=== PATIENT | female | born 1980 | race Caucasian/White ===

== ENCOUNTER 2019-06-04 15:19 | Emergency (ER) | payer SELFPAY ==
[2019-06-04 15:32] VITALS: BP 113/82; PULSE 110; RESP 18; TEMP 36.7; O2SAT 97
--- NOTE | 2019-06-04 15:47 | ED.GENADUL_ITS ---
Discharge Plan Disposition Patient Disposition: HOME Condition: Improving Discharge Details Chief Complaint: DentalOral Clinical Impression: Broken tooth Primary Care Provider: None,None ED Provider: Wesley Davidson Home Meds and New Rx's Prescriptions: New penicillin V potassium 500 mg tablet 500 mg PO TID 10 Days Qty: 30 RF: 0 tramadol 50 mg tablet 50 mg PO BID PRN (Reason: pain) Qty: 5 RF: 0 Discharge Instructions Instructions: Acute Dental Trauma (ED) Additional Instructions: Continue ibuprofen 800 mg every 8 hours, Tylenol 650 mg every 6 hours as needed for pain. May use the provided prescription for tramadol if needed for severe or breakthrough pain. Return if develop difficulty swallowing, difficulty breathing, continued enlargement of the swelling, or any other acute concerns. Please follow-up with social work directly as instructed by nursing staff.. May apply moist warm heat to area to reduce discomfort. Medical Decision Making 38-year-old female presents from home with her partner. She has had chronic dental issues with numerous rotted teeth. Now with left mandibular pain and swelling, broken cusps of the first left mandibular molar. There is surrounding edema but no evidence of fluctuance. Patient was offered and consented to anesthesia with a left inferior alveolar block with a 50-50 mix of lidocaine and Marcaine. I will place her on penicillin. She has a fairly significant pain and offered her small number of tramadol. Patient states she is unable to pay for medications and currently has no insurance. Nursing staff is arrange for her to meet with social work today. She understands dissipated course of resolution, referral to dentistry, indications to return to the ED. HPI General Mode of arrival: ambulatory . Date/Time Provider Initiated Documentation: 06/04/19 15:22 . Limitations to Documentation: no limitations . Information obtained by: patient . History of Present Illness 38 year old F presents to the emergency department with the chief complaint of Left face swelling and broken tooth, described as moderate, Quality is described as aching, and is localized to the face and left. Patient started experiencing this day(s) and it has been constant. No relieving factors improve symptom(s), No exacerbating factors reported . Patient notes denies fever/chills, headaches and nausea/vomiting. Patient did receive the following treatments prior to arrival, NSAID Related Data Home Medications Medication Instructions Recorded Confirmed penicillin V potassium 500 mg PO TID 10 Days #30 tab 06/04/19 tramadol 50 mg PO BID PRN #5 tab 06/04/19 Previous Rx's Medication Instructions Recorded penicillin V potassium 500 mg PO TID 10 Days #30 tab 06/04/19 tramadol 50 mg PO BID PRN #5 tab 06/04/19 Allergies Allergy/AdvReac Type Severity Reaction Status Date / Time prochlorperazine Allergy Severe Other (See Unverified 06/04/19 15:34 [From Compazine] Comment) General Stated Complaint: DentalOral RANGEL: 4 Review of Systems Narrative: No change to voice, no drooling, no difficulty breathing. Has not seen a dentist or primary care in many years. Continues to smoke. 6 systems reviewed and otherwise negative. [facility] Medical History Cholecystectomy planned (Acute) Surgical History History of appendectomy (Chronic) Tubal ligation status (Acute) Social History Smoking/Tobacco Use Status: Current every day Tobacco Type: cigarettes Alcohol Intake: never Substance use type: does not use Do you feel safe at home: Yes Do you feel safe in your relationship?: Yes Exam Narrative Exam Narrative: GEN: awake, alert, oriented 3. Pleasant, well groomed, interactive. HEAD: Normocephalic, atraumatic ENT: Mucous membranes moist, oropharynx with numerous dental caries, the left mandibular first molar is eroded with both cusps broken, surrounding left buccal swelling. There is no pointing fluctuance. EYES: PERRL, EOMI NECK: Full ROM, left anterior ARNIE, no menigismus CHEST/RESP: Nontender, clear to auscultation bilateral, no wheeze/rhonchi/rales CARDIOVASCULAR: RRR-not tachycardic at the time of my exam, no murmur, rub lincoln. 2+ Rad pulse bilateral EXT: Full ROM, no edema, no rash Neuro: Grossly normal neurologic exam, conversant, interactive. Psych: Speech fluent, thoughts congruent, affect normal Course Vital Signs Vital signs: Vital Signs Temperature 36.7 C 06/04/19 15:32 Pulse 110 H 06/04/19 15:32 Respiratory Rate 18 06/04/19 15:32 Blood Pressure 113/82 06/04/19 15:32 Pulse Oximetry 97 06/04/19 15:32 Temperature 36.7 C 06/04/19 15:32 Temperature Source Skin 06/04/19 15:32 Pulse 110 H 06/04/19 15:32 Respiratory Rate 18 06/04/19 15:32 Respiratory Effort 06/04/19 15:36 Blood Pressure 113/82 06/04/19 15:32 Pulse Oximetry 97 06/04/19 15:32 Oxygen Delivery Method Room Air 06/04/19 15:32 Oxygen Flow Rate 0 06/04/19 15:32 Pain Level 7 06/04/19 15:32 Procedures Other Description: Left inferior alveolar regional anesthesia as per my note
[2019-06-04] MEDS: Acetaminophen 500 MG TAB 1000 MG PO (16:06)
[2019-06-04] MEDS: Penicillin V POTASSIUM 500 MG TAB, 4 TABS/BTL PO ×3 (16:06)
--- NOTE | 2019-06-04 16:07 | NUR.NOTE ---
caremanagement and community connection aware of patient, patient received discharge and follow up instructions per MD order Nursing Note:
--- NOTE | 2019-06-04 16:22 | CMPROGNOTE_ITS ---
- If Service Date Differs Date of service: 06/04/19 Time of Service: 16:22 Care Management Progress Note DRE was asked to visit Deborah during her visit to the ED. Deborah is new to the area, recently moved here from [place]. She does not have a local PCP or health insurance. She also does not have a phone currently, or employment. 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 Deborah's primary concern is to be able to access her medications. CM called [facility] to see if they could see her today in order to obtain health insurance and to be able to bulk picker her prescriptions. They were unable to see her today, but did have a phone conversation and scheduled a time for Deborah to go to [facility] on Friday. The provider in the ED was able to give her enough abx to get her through the weekend. DRE also stated that a referral would be sent to the automation and control engineer PCP for her to establish herself as a patient. They will not be able to reach her by phone, only by mail at this time. DRE provided contact information for our office for her to follow up with Care Management, if needed.
== END 2019-06-04 16:29 | disposition home or self-care (01) ==
LOC: ER 16:01
PROVIDERS: Emergency Provider Emergency Medicine
DX: R68.84 Jaw pain (principal); K03.81 Cracked tooth
CPT/HCPCS: 64402